=== PATIENT | male | born 1985 | race American Indian/Alaskan Native ===

== ENCOUNTER 2021-12-11 11:35 | Emergency (ER) | payer SELFPAY ==
[2021-12-11] MEDS ORDERED: HYDROcodone/ACETAMINOPHEN 5-325 MG TAB PO ONE (13:27)
--- NOTE | 2021-12-11 13:31 | Event Note ---
ED Screening Note ED Screening Note: Patient presents with complaints of body aches, chills, shortness of breath, and swelling to his left testicle starting Thursday History of HIV, diabetes, hypertension, and HLD Patient is not on antiretrovirals He denies being vaccinated against COVID-19 and has not had any recent testing performed No hemoptysis or recent long travel per patient No leg pain/swelling This initial assessment/diagnostic orders/clinical plan/treatment(s) is/are subject to change based on patients health status, clinical progression and re- assessment by fellow clinical providers in the ED. Further treatment and workup at subsequent clinical providers discretion. Patient/guardian urged not to elope from the ED as their condition may be serious if not clinically assessed and managed. Initial orders include: Labs Meds Ultrasound
[2021-12-11 14:07] LABS: Basophils % (Auto) 0.5 % (0.0-1.8); Eosinophils % (Auto) 0.5 % (0.0-4.3); Hemoglobin 16.3 gm/dl (11.8-15.2); Lymphocytes # (Auto) 1.8 K/mm3 (1.2-5.4); Lymphocytes % (Auto) 35.2 % (13.4-35.0); Mean Corpuscular HGB Conc 33 % (32-34); Mean Corpuscular Volume 90 fl (84-94); Monocytes # (Auto) 0.7 K/mm3 (0.0-0.8); Monocytes % (Auto) 14.4 % (0.0-7.3); Platelet Count 163 K/mm3 (140-440); Red Blood Count 5.54 M/mm3 (3.65-5.03); Red Cell Distribution Width 14.8 % (13.2-15.2)
[2021-12-11 14:27] LABS: Bilirubin,Urine MOD (Negative); Blood,Urine SM (Negative); Color,Urine Amber (Yellow); Mucus,Urine 2+ /HPF; Sperm,Urine 1+ /HPF (NP)
[2021-12-11 14:38] LABS: Albumin 3.9 g/dL (3.9-5); BUN/Creatinine Ratio 10; Blood Urea Nitrogen 10 mg/dL (9-20); Hemolysis Index 6
[2021-12-11 14:46] LABS: Ictotest,Urine Positive (Negative)
--- NOTE | 2021-12-11 14:48 | Ultrasound Report ---
. ULTRASOUND SCROTUM INDICATION: pain, swelling. COMPARISON None available. FINDINGS -- RIGHT TESTIS: Size: 4.2 cm. Echotexture: Normal. Color Doppler Flow: Normal. Lesions: None. EPIDIDYMIS: Size: Normal. Echotexture: Normal. Color Doppler Flow: Normal. Lesions: None. Hydrocele: None. Varicocele: None. Additional Findings: None. FINDINGS -- LEFT TESTIS: Size: 4.0 cm. Echotexture: Normal. Color Doppler Flow: Normal. Lesions: None. EPIDIDYMIS: Size: Normal. Echotexture: Normal. Color Doppler Flow: Normal. Lesions: None. Hydrocele: None. Varicocele: None. Additional Findings: Within the left hemiscrotum there is an extratesticular complex area with periph eral vascularity. This measures approximately 3.3 x 1.3 x 1.7 cm. The superficial aspect of this trac ks toward the skin surface. IMPRESSION: 1. No testicular abnormality. No hydrocele. 2. The left hemiscrotum there is a complex hypoechoic area with peripheral vascularity that tracks to thomason the skin surface, measurements as above. This could be organizing infection. No drainable absces s is seen at this time. Signer Name: Orlin Garnett MD Signed: 12/11/2021 2:43 PM Workstation Name: [id number]
--- NOTE | 2021-12-11 14:58 | XRay Report ---
CHEST 2 VIEWS INDICATION / CLINICAL INFORMATION: shortness of breath. COMPARISON: None available. FINDINGS: SUPPORT DEVICES: None. HEART / MEDIASTINUM: No significant abnormality. LUNGS / PLEURA: No significant pulmonary or pleural abnormality. No pneumothorax. ADDITIONAL FINDINGS: No significant additional findings. IMPRESSION: 1. No acute findings. Signer Name: Shai Duque DO Signed: 12/11/2021 2:54 PM Workstation Name: [id number]
[2021-12-11] MEDS ORDERED: fentaNYL 100 MCG/2 ML INJ IV ONE (15:11)
[2021-12-11] MEDS ORDERED: SODIUM CHLORIDE 0.9% 1000 ML 1,000 ML IV ONE (15:11)
--- NOTE | 2021-12-11 15:13 | Emergency Department Report ---
ED General Adult HPI - General Chief complaint: Dyspnea/Respdistress Stated complaint: ABCESS/BODY PAIN/SOB Time Seen by Provider: 12/11/21 13:06 Source: patient Mode of arrival: Ambulatory Limitations: No Limitations - History of Present Illness Initial comments: Patient presented secondary to myalgias with body aches and scrotal pain. He has been having symptoms for several days now. He reports subjective fevers and chills. There is diffuse myalgia. He has had no vomiting or diarrhea. Has no dysuria frequency. He has been having pain in the left side of the scrotum. There is no scrotal trauma. Pain has been in constant aching pain. It does not radiate or migrate. He has had no dysuria. There has been no cough. He has no vomiting or diarrhea. He has not been taking a lot of Tylenol. He does not drink a lot of alcohol. He does admit that he has HIV but is not on any medications currently. Severity scale (0 -10): 3 - Related Data Previous Rx's Medication Instructions Recorded Last Taken Type Ibuprofen [Motrin] 800 mg PO Q8HR PRN #30 tablet 12/11/21 Unknown Rx Sulfamethoxazole/Trimethoprim 1 each PO BID #20 tab 12/11/21 Unknown Rx [Bactrim 400-80 mg Tablet] cephALEXin [Keflex] 500 mg PO Q8HR #30 cap 12/11/21 Unknown Rx Allergies Allergy/AdvReac Type Severity Reaction Status Date / Time nalbuphine [From Nubain] AdvReac Unknown Verified 12/11/21 12:15 ED Review of Systems ROS: Stated complaint: ABCESS/BODY PAIN/SOB Other details as noted in HPI Comment: All other systems reviewed and negative Constitutional: fever (Subjective) Eyes: denies: eye pain ENT: denies: throat pain Respiratory: denies: cough Cardiovascular: denies: chest pain Endocrine: denies: unexplained weight loss Gastrointestinal: denies: abdominal pain Genitourinary: as per HPI Musculoskeletal: denies: back pain Skin: denies: rash Neurological: denies: headache Hematological/Lymphatic: denies: easy bruising ED Past Medical Hx - Past Medical History Hx HIV: Yes - Family History Family history: no significant - Medications Home Medications: Home Medications Medication Instructions Recorded Confirmed Last Taken Type Ibuprofen [Motrin] 800 mg PO Q8HR PRN #30 tablet 12/11/21 Unknown Rx Sulfamethoxazole/Trimethoprim 1 each PO BID #20 tab 12/11/21 Unknown Rx [Bactrim 400-80 mg Tablet] cephALEXin [Keflex] 500 mg PO Q8HR #30 cap 12/11/21 Unknown Rx ED Physical Exam - General Limitations: No Limitations, Other (Pulse ox noted and normal) General appearance: alert, in no apparent distress - Head Head exam: Present: atraumatic, normocephalic - Eye Eye exam: Present: normal appearance, EOMI. Absent: scleral icterus - ENT ENT exam: Present: normal orophraynx, normal external ear exam - Neck Neck exam: Present: normal inspection. Absent: meningismus - Respiratory Respiratory exam: Present: normal lung sounds bilaterally. Absent: respiratory distress - Cardiovascular Cardiovascular Exam: Present: regular rate, normal rhythm - GI/Abdominal GI/Abdominal exam: Present: soft. Absent: distended, tenderness, guarding, rebound - exam: Present: scrotal swelling (Left), vertical testicular lie, other (There is no induration in the swollen area in the left scrotum. Testicle is not affected. Hysterics are normal). Absent: testicular tenderness - Extremities Exam Extremities exam: Present: normal capillary refill - Back Exam Back exam: Absent: CVA tenderness (R), CVA tenderness (L) - Neurological Exam Neurological exam: Present: alert, oriented X3, CN II-XII intact, normal gait, motor sensory deficit - Psychiatric Psychiatric exam: Present: normal affect, normal mood - Skin Skin exam: Present: warm, dry ED Course Vital Signs 12/11/21 12/11/21 12:17 15:56 Temperature 98.2 F 98.8 F Pulse Rate 95 H 83 Respiratory 18 18 Rate Blood Pressure 115/79 105/67 [Right] O2 Sat by Pulse 97 100 Oximetry - Reevaluation(s) Reevaluation #1: 12/11/21 15:13 Labs are noted. Ultrasound and x-ray results were noted. Antibiotics were ordered along with blood cultures. Old records noted. Reevaluation #2: 12/11/21 16:55 Labs are noted and the patient was discharged. ED Medical Decision Making - Lab Data Result diagrams: 12/11/21 13:49 12/11/21 13:49 - Radiology Data Radiology results: report reviewed - Medical Decision Making Patient presented with multiple issues including scrotal pain. He did not have clinical evidence of torsion or ultrasonographic evidence of torsion. He does have evidence of a possible phlegmon versus cellulitis. There is no evidence of discrete or drainable abscess. Patient does not have significant leukocytosis or lactic acidosis. I do not believe he has sepsis. He does have elevated liver enzymes of uncertain etiology. He has not been at this facility before. He has not been using Tylenol. He has no right upper quadrant tenderness. Whether this is related to HIV is not known. Patient will be referred to gastroenterology and to primary care. We have had a long discussion about evaluation of his liver enzymes. We have also discussed the fact that he has a scrotal cellulitis and this needs to be watched carefully. He will follow-up with his primary care physician. He does not have other features of severe sepsis or septic shock. Critical Care Time: No Critical care attestation.: If time is entered above; I have spent that time in minutes in the direct care of this critically ill patient, excluding procedure time. ED Disposition Clinical Impression: Cellulitis of scrotum, Transaminitis Disposition: HOME / SELF CARE / HOMELESS Is pt being admited?: No Condition: Stable Additional Instructions: Take the antibiotics. Avoid Tylenol. 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 Avoid alcohol in addition. Have your liver enzymes rechecked. Return for any problems or concerns. Prescriptions: Sulfamethoxazole/Trimethoprim [Bactrim 400-80 mg Tablet] 1 each PO BID #20 tab cephALEXin [Keflex] 500 mg PO Q8HR #30 cap Ibuprofen [Motrin] 800 mg PO Q8HR PRN #30 tablet PRN Reason: Pain, Moderate (4-6) Referrals: PRIMARY MD ANGELA [Referring] - 3-5 Days AMANDA HAIRSTON MD [Staff Physician] - 3-5 Days DARA NGUYEN MD [Staff Physician] - 3-5 Days
[2021-12-11 15:20] LABS: Alanine Aminotransferase 4147 units/L (7-56)
[2021-12-11 15:57] VITALS: BP 105/67
== END 2021-12-11 18:07 | disposition home or self-care (01) ==
LOC: ED 11:35
DX: N49.2 Inflammatory disorders of scrotum (principal); R74.01 Elevation of levels of liver transaminase levels; M79.18 Myalgia, other site; Z88.8 Allergy status to other drugs, medicaments and biological substances; Z79.899 Other long term (current) drug therapy
CPT/HCPCS: 36415; 71046; 80053; 81001; 82140; 85025; 87040; 93975; 96361; 96365; 96375; 99284; J0690; J3010; J7030; Q0162

== ENCOUNTER 2021-12-13 17:55 | Emergency (ER) | payer SELFPAY ==
[2021-12-13] MEDS ORDERED: MEROPENEM/NS 1 GRAM/100 ML 1 GRAM/100 ML BAG IV ONE (19:04)
[2021-12-13] MEDS ORDERED: MORPHINE 4 MG/1 ML INJ IV ONE ×2 (19:05→23:23)
[2021-12-13] MEDS ORDERED: VANCOMYCIN/NS 1 GM/250 ML 1 GM/250 ML BAG IV ONE (19:05)
[2021-12-13] MEDS ORDERED: ONDANSETRON 4 MG/2 ML INJ IV ONE (19:05)
--- NOTE | 2021-12-13 19:11 | Event Note ---
I performed medical screening exam. This is a 36-year-old male with history of diabetes mellitus, HIV noncompliant with ART who presents with cellulitis of the scrotum. Infection has been present for 1 week. He was evaluated at this facility 2 days ago. Given antibiotics. Infection has worsened. There is a 5 cm area in the left central scrotum with fluctuance. 3 cm dark necrotic area. I have ordered broad-spectrum antibiotics and CT pelvis with IV contrast. My colleague will make appropriate disposition.
--- NOTE | 2021-12-13 19:53 | Emergency Department Report ---
ED Male HPI - General Chief complaint: Urogenital-Male Stated complaint: CELLUTIUS Time Seen by Provider: 12/13/21 18:32 Source: patient Mode of arrival: Ambulatory Limitations: No Limitations - History of Present Illness Initial comments: 36-year-old male with a past medical history of tab-[id number] diabetes, HIV for the last 4-5 years of heart medicine for 7 months due to lack of local MD (CD4 unknown), history of heart surgery for removal of a cardiac mass in 2019 presents to the hospital with complaints of worsening left testicular infection. 1 week ago patient developed a "bump" to his left scrotum which he popped on his own. 2 days later the left testicle was increasing in size with worsening pain. He presented here on December 11 and had a testicular ultrasound suggestive of cellulitis/infection and was started on Bactrim and Keflex. Despite taking the medication patient complains of worsening pain and swelling and noticed black discoloration to the skin today. He complains of generalized tiredness and fatigue with moderate to severe pain worse with palpation and ambulation. Patient states he drinks alcohol weekends only and denies alcohol dependence - Related Data Previous Rx's Medication Instructions Recorded Last Taken Type Ibuprofen [Motrin] 800 mg PO Q8HR PRN #30 tablet 12/11/21 Unknown Rx Sulfamethoxazole/Trimethoprim 1 each PO BID #20 tab 12/11/21 Unknown Rx [Bactrim 400-80 mg Tablet] cephALEXin [Keflex] 500 mg PO Q8HR #30 cap 12/11/21 Unknown Rx Allergies Allergy/AdvReac Type Severity Reaction Status Date / Time nalbuphine [From Nubain] AdvReac Unknown Verified 12/11/21 12:15 ED Review of Systems ROS: Stated complaint: CELLUTIUS Other details as noted in HPI Comment: All other systems reviewed and negative ED Past Medical Hx - Past Medical History Previous Medical History?: Yes Hx HIV: Yes - Surgical History Past Surgical History?: Yes Additional Surgical History: Cardiac mass removal 2009 - Medications Home Medications: Home Medications Medication Instructions Recorded Confirmed Last Taken Type Ibuprofen [Motrin] 800 mg PO Q8HR PRN #30 tablet 12/11/21 Unknown Rx Sulfamethoxazole/Trimethoprim 1 each PO BID #20 tab 12/11/21 Unknown Rx [Bactrim 400-80 mg Tablet] cephALEXin [Keflex] 500 mg PO Q8HR #30 cap 12/11/21 Unknown Rx ED Physical Exam - General Limitations: No Limitations - Other Other exam information: General: No acute distress Head: Atraumatic Eyes: Icteric sclera ENT: Moist mucous membranes Neck: Normal appearance, no midline tenderness Chest: Clear to auscultation bilaterally CV: Regular rate and rhythm. Heart rate 93 during examination Abdomen: Soft, normal bowel sounds, nontender, nondistended, no rebound or guarding : Circumcised, penis without acute adenopathy, patient has swelling to the left scrotum with tenderness and 2 separate areas of necrosis. Pain is a 5 cm and a 2 cm area of necrosis to the left testicle. Patient does not have tenderness or crepitus along the upper leg, thigh, or inguinal area. Nontender left inguinal lymphadenopathy, no drainage Back: Normal inspection Extremity: Normal inspection, full range of motion Neuro: Alert O x 3, no facial asymmetry, speech clear, no gross motor sensory deficit Psych: Appropriate behavior Skin: No rash ED Course Vital Signs 12/13/21 12/13/21 12/13/21 18:16 19:37 19:40 Temperature 98.5 F 98.7 F Pulse Rate 118 H 92 H 91 H Respiratory 16 11 L 17 Rate Blood Pressure 117/78 Blood Pressure 129/79 114/76 [Left] O2 Sat by Pulse 97 96 97 Oximetry 12/13/21 12/13/21 12/13/21 19:45 20:01 20:08 Temperature Pulse Rate 89 91 H Respiratory 16 19 18 Rate Blood Pressure 123/85 119/89 Blood Pressure [Left] O2 Sat by Pulse 97 96 Oximetry 12/13/21 12/13/21 12/13/21 20:15 20:31 23:34 Temperature Pulse Rate 93 H 100 H Respiratory 13 22 18 Rate Blood Pressure 119/89 119/89 Blood Pressure [Left] O2 Sat by Pulse 98 98 Oximetry - Reevaluation(s) Reevaluation #1: 12/13/21 23:23 During ultrasound patient had rupture of his scrotal abscess with significant purulent drainage. Additional pain medicine ordered 12/13/21 23:41 Patient reexamined and has irregular abscess that area large necrotic area with foul-smelling purulent drainage. - Consultations Consultation #1: 12/13/21 22:05 secondary attempted to call [facility] to transfer patient and discussed case. We were informed that we will be contacting since they were busy with another call. 22:44 Case discussed with [facility] service. Leona will page urology and call me back 12/13/21 22:52 Received call back (originally called at 22:45)katherine Valladares and I spoke to Dr. Caal urologist who has accepted patient for transfer pending awaiting callback from admitting hospitalist to finalize acceptance. 12/13/21 23:51 Received follow-up call for [facility] at this time to receive patient information. Since patient has a pending acceptance to [facility] I did not pursue transfer to [facility] at this time 12/14/21 00:05 I received call from [facility] that pt does not have a bed therefore transfer decline ED Medical Decision Making - Lab Data Result diagrams: 12/13/21 19:27 12/13/21 19:27 Lab Results 12/13/21 12/13/21 12/13/21 Range/Units 19:27 19:27 19:27 WBC 8.2 (4.5-11.0) K/mm3 RBC 5.02 (3.65-5.03) M/mm3 Hgb 16.0 H (11.8-15.2) gm/dl Hct 45.7 H (35.5-45.6) % MCV 91 (84-94) fl MCH 32 (28-32) pg MCHC 35 H (32-34) % RDW 15.1 (13.2-15.2) % Plt Count 162 (140-440) K/mm3 Lymph % (Auto) 16.0 (13.4-35.0) % Lawrence % (Auto) 4.3 (0.0-7.3) % Eos % (Auto) 0.6 (0.0-4.3) % Baso % (Auto) 0.4 (0.0-1.8) % Lymph # (Auto) 1.3 (1.2-5.4) K/mm3 Lawrence # (Auto) 0.4 (0.0-0.8) K/mm3 Eos # (Auto) 0.0 (0.0-0.4) K/mm3 Baso # (Auto) 0.0 (0.0-0.1) K/mm3 Seg Neutrophils % 78.7 H (40.0-70.0) % Seg Neutrophils # 6.5 (1.8-7.7) K/mm3 PT (12.2-14.9) Sec. INR (0.87-1.13) APTT (24.2-36.6) Sec. Sodium 133 L (137-145) mmol/L Potassium 4.2 (3.6-5.0) mmol/L Chloride 98.0 (98-107) mmol/L Carbon Dioxide 24 (22-30) mmol/L Anion Gap 15 mmol/L BUN 10 (9-20) mg/dL Creatinine 0.7 L (0.8-1.3) mg/dL Estimated GFR > 60 ml/min BUN/Creatinine Ratio 14 % Glucose 166 H (75-100) mg/dL Lactic Acid 4.10 H* (0.7-2.0) mmol/L Calcium 9.1 (8.4-10.2) mg/dL Total Bilirubin 6.90 H (0.1-1.2) mg/dL AST 1698 H (5-40) units/L ALT 3184 H (7-56) units/L Alkaline Phosphatase 268 H (35-129) units/L Total Protein 8.6 H (6.3-8.2) g/dL Albumin 3.5 L (3.9-5) g/dL Albumin/Globulin Ratio 0.7 % Hepatitis A IgM Ab (NonReactive) Hep Bs Antigen (Negative) Hep B Core IgM Ab (NonReactive) Hepatitis C Antibody (NonReactive) 12/13/21 12/13/21 12/13/21 Range/Units 20:22 20:45 23:18 WBC (4.5-11.0) K/mm3 RBC (3.65-5.03) M/mm3 Hgb (11.8-15.2) gm/dl Hct (35.5-45.6) % MCV (84-94) fl MCH (28-32) pg MCHC (32-34) % RDW (13.2-15.2) % Plt Count (140-440) K/mm3 Lymph % (Auto) (13.4-35.0) % Lawrence % (Auto) (0.0-7.3) % Eos % (Auto) (0.0-4.3) % Baso % (Auto) (0.0-1.8) % Lymph # (Auto) (1.2-5.4) K/mm3 Lawrence # (Auto) (0.0-0.8) K/mm3 Eos # (Auto) (0.0-0.4) K/mm3 Baso # (Auto) (0.0-0.1) K/mm3 Seg Neutrophils % (40.0-70.0) % Seg Neutrophils # (1.8-7.7) K/mm3 PT 18.9 H (12.2-14.9) Sec. INR 1.43 H (0.87-1.13) APTT 32.1 (24.2-36.6) Sec. Sodium (137-145) mmol/L Potassium (3.6-5.0) mmol/L Chloride (98-107) mmol/L Carbon Dioxide (22-30) mmol/L Anion Gap mmol/L BUN (9-20) mg/dL Creatinine (0.8-1.3) mg/dL Estimated GFR ml/min BUN/Creatinine Ratio % Glucose (75-100) mg/dL Lactic Acid 1.90 (0.7-2.0) mmol/L Calcium (8.4-10.2) mg/dL Total Bilirubin (0.1-1.2) mg/dL AST (5-40) units/L ALT (7-56) units/L Alkaline Phosphatase (35-129) units/L Total Protein (6.3-8.2) g/dL Albumin (3.9-5) g/dL Albumin/Globulin Ratio % Hepatitis A IgM Ab Reactive A (NonReactive) Hep Bs Antigen Non-reactive (Negative) Hep B Core IgM Ab Non-reactive (NonReactive) Hepatitis C Antibody Non-reactive (NonReactive) - Radiology Data Radiology results: report reviewed Age/Sex: 36 / M ADM Date: 12/11/21 Loc: ED Attending Dr: Ordering Physician: NICHOLE ARITA Date of Service: 12/11/21 Procedure(s): US testicular doppler comp Accession Number(s): [id number] cc: NICHOLE ARITA . ULTRASOUND SCROTUM INDICATION: pain, swelling. COMPARISON None available. FINDINGS -- RIGHT TESTIS: Size: 4.2 cm. Echotexture: Normal. Color Doppler Flow: Normal. Lesions: None. EPIDIDYMIS: Size: Normal. Echotexture: Normal. Color Doppler Flow: Normal. Lesions: None. Hydrocele: None. Varicocele: None. Additional Findings: None. FINDINGS -- LEFT TESTIS: Size: 4.0 cm. Echotexture: Normal. Color Doppler Flow: Normal. Lesions: None. EPIDIDYMIS: Size: Normal. Echotexture: Normal. Color Doppler Flow: Normal. Lesions: None. Hydrocele: None. Varicocele: None. Additional Findings: Within the left hemiscrotum there is an extratesticular complex area with peripheral vascularity. This measures approximately 3.3 x 1.3 x 1.7 cm. The superficial aspect of this tracks toward the skin surface. IMPRESSION: 1. No testicular abnormality. No hydrocele. 2. The left hemiscrotum there is a complex hypoechoic area with peripheral vas cularity that tracks toward the skin surface, measurements as above. This could be organizing infec tion. No drainable abscess is seen at this time. Signer Name: Orlin Garnett MD Signed: 12/11/2021 2:43 PM Workstation Name: [email or web address] 12/13 results: CT ABDOMEN AND PELVIS WITH CONTRAST INDICATION / CLINICAL INFORMATION: left scrotal necrosis, lft elevation. TECHNIQUE: Axial CT images were obtained through the abdomen and pelvis after Omnipaque 350, 100 cc IV contrast. [address] scans at this location are performed using CT dose redu ction for [facility] by means of automated exposure control. COMPARISON: None available. FINDINGS: LOWER CHEST: No significant abnormality. LIVER: No significant abnormality. GALLBLADDER: Partially contracted gallbladder with mild wall edema. BILE DUCTS: No significant abnormality. PANCREAS: No significant abnormality. SPLEEN: No significant abnormality. ADRENALS: No significant abnormality. RIGHT KIDNEY / URETER: No significant abnormality. LEFT KIDNEY / URETER: No significant abnormality. STOMACH / SMALL BOWEL: No significant abnormality. COLON: No significant abnormality. APPENDIX: No significant abnormality. PERITONEUM: Mild fluid/inflammation at the subhepatic space and right paracolic gutter. No free air. No fluid collection. LYMPH NODES: No significant adenopathy. VASCULAR STRUCTURES: No significant abnormality. URINARY BLADDER: No significant abnormality. REPRODUCTIVE ORGANS: Large amount of fluid at the left hemiscrotum with nondependent air. ADDITIONAL FINDINGS: None. SKELETAL SYSTEM: No significant abnormality. IMPRESSION: 1. Suspected infected left hydrocele. 2. Contracted gallbladder with mild wall edema. There is also mild inflammation at the subhepatic space extending towards the right paracolic gutter. Findings are worrisome for cholecystitis in the appropriate clinical setting. Further evaluation could be obtained with ultrasound or HIDA scan as clinically indicated. Signer Name: Ger Galarza MD Signed: 12/13/2021 9:18 PM Workstation Name: [id number] - Medical Decision Making 36-year-old male presents to the hospital with worsening left scrotal infection with new skin necrosis. 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 Positive abscess rupture while receiving repeat ultrasound. CT results noted and discussed with radiologist. Patient has elevated lactic acid without signs of septic shock. Improved lactic acidosis with IV hydration. Patient also received several antibiotics for Gustavo's coverage. Patient is immunocompromised secondary to HIV with medication noncompliance and diabetes. Incidental finding of elevated LFTs noted and compared to previous values 2 days ago. Hepatitis a screen positive. Low suspicion for acute cholecystitis given lack of right upper quadrant abdominal pain, nausea, or vomiting. Patient accepted by urologist at [facility] with return calls pending from [place] at disposition Case signed out to Dr. Fiore did discuss case with accepting hospitalist at [facility] who will admit with urology consultation (declined due to bed capacity) Critical Care Time: Yes Critical care time in (mins) excluding proc time.: 35 Critical care attestation.: If time is entered above; I have spent that time in minutes in the direct care of this critically ill patient, excluding procedure time. Critical Care Time: 35 Minutes of critical care time excluding procedures were used in the care of the patient. I discussed treatment plan with the nursing team members. I rev iewed electronic record. I spoke with family to obtain medical history. Patient required multiple interventions and reassessments. Patient required multiple outside calls for transfer ED Disposition Clinical Impression: Scrotal abscess, HIV (human immunodeficiency virus infection), Hepatitis A, Transaminitis, Skin necrosis, Elevated lactic acid level Disposition: 02 SHORT TERM HOSPITAL Is pt being admited?: No Condition: Stable Referrals: IWONA HORNER MD [Primary Care Provider] - 3-5 Days Time of Disposition: 23:53 (pending acceptance)
[2021-12-13 19:58] LABS: Albumin 3.5 g/dL (3.9-5); Blood Urea Nitrogen 10 mg/dL (9-20); Calcium 9.1 mg/dL (8.4-10.2); Hemolysis Index 100
[2021-12-13 20:00] LABS: Basophils % (Auto) 0.4 % (0.0-1.8); Eosinophils % (Auto) 0.6 % (0.0-4.3); Hematocrit 45.7 % (35.5-45.6); Lymphocytes # (Auto) 1.3 K/mm3 (1.2-5.4); Mean Corpuscular HGB Conc 35 % (32-34); Mean Corpuscular Volume 91 fl (84-94); Monocytes # (Auto) 0.4 K/mm3 (0.0-0.8); Monocytes % (Auto) 4.3 % (0.0-7.3); Platelet Count 162 K/mm3 (140-440); Red Blood Count 5.02 M/mm3 (3.65-5.03); Red Cell Distribution Width 15.1 % (13.2-15.2)
[2021-12-13 20:11] LABS: Alanine Aminotransferase 3184 units/L (7-56); BUN/Creatinine Ratio 14
[2021-12-13] MEDS ORDERED: SODIUM CHLORIDE 0.9% 1000 ML IV SOLN IV ONE (20:14)
[2021-12-13 21:19] LABS: INR 1.43 (0.87-1.13); Partial Thromboplastin Time 32.1 Sec. (24.2-36.6)
--- NOTE | 2021-12-13 21:23 | Cat Scan Report ---
CT ABDOMEN AND PELVIS WITH CONTRAST INDICATION / CLINICAL INFORMATION: left scrotal necrosis, lft elevation. TECHNIQUE: Axial CT images were obtained through the abdomen and pelvis after Omnipaque 350, 100 cc I V contrast. All CT scans at this location are performed using CT dose reduction for ALARA by means o f automated exposure control. COMPARISON: None available. FINDINGS: LOWER CHEST: No significant abnormality. LIVER: No significant abnormality. GALLBLADDER: Partially contracted gallbladder with mild wall edema. BILE DUCTS: No significant abnormality. PANCREAS: No significant abnormality. SPLEEN: No significant abnormality. ADRENALS: No significant abnormality. RIGHT KIDNEY / URETER: No significant abnormality. LEFT KIDNEY / URETER: No significant abnormality. STOMACH / SMALL BOWEL: No significant abnormality. COLON: No significant abnormality. APPENDIX: No significant abnormality. PERITONEUM: Mild fluid/inflammation at the subhepatic space and right paracolic gutter. No free air. No fluid collection. LYMPH NODES: No significant adenopathy. VASCULAR STRUCTURES: No significant abnormality. URINARY BLADDER: No significant abnormality. REPRODUCTIVE ORGANS: Large amount of fluid at the left hemiscrotum with nondependent air. ADDITIONAL FINDINGS: None. SKELETAL SYSTEM: No significant abnormality. IMPRESSION: 1. Suspected infected left hydrocele. 2. Contracted gallbladder with mild wall edema. There is also mild inflammation at the subhepatic spa ce extending towards the right paracolic gutter. Findings are worrisome for cholecystitis in the [facility] clinical setting. Further evaluation could be obtained with ultrasound or HIDA scan as clinic ally indicated. Signer Name: Ger Galarza MD Signed: 12/13/2021 9:18 PM Workstation Name: [id number]
[2021-12-13 21:34] LABS: Hepatitis B Surface Antigen Non-Reactive (Negative); Hepatitis C Virus Antibody Non-Reactive (NonReactive)
--- NOTE | 2021-12-13 23:34 | Ultrasound Report ---
LIMITED RUQ ABDOMINAL ULTRASOUND INDICATION / CLINICAL INFORMATION: elevated lfts. COMPARISON: CT from same day FINDINGS: PANCREAS: Visualized portions of the pancreas are within normal limits. ABDOMINAL AORTA: No significant abnormality. IVC: No significant abnormality. LIVER: Liver measures 17.5 cm. The liver demonstrates a normal echogenicity and morphology. PORTAL VEIN: Normal hepatopedal blood flow in the main portal vein. GALLBLADDER: Gallbladder is contracted. No discrete gallstones identified. However, there is perichol ecystic fluid. The wall of the gallbladder measures 5 mm. BILE DUCTS: No significant abnormality. Common bile duct measures 3 mm. FREE FLUID: None. ADDITIONAL FINDINGS: None. IMPRESSION: 1. Contracted gallbladder without discrete gallstones. However, there is pericholecystic fluid and ga llbladder wall thickening. Findings could be seen with acute acalculous cholecystitis. Recommend furt her evaluation with HIDA scan. 2. Mild hepatomegaly. Signer Name: Keith Grewal MD Signed: 12/13/2021 11:30 PM Workstation Name: [id number]
--- NOTE | 2021-12-13 23:40 | Ultrasound Report ---
ULTRASOUND SCROTUM INDICATION / CLINICAL INFORMATION: left scrotum infection. COMPARISON: Same-day CT examination. Prior ultrasound from 12/11/2021 FINDINGS -- RIGHT TESTIS: Size = 3.9 x 2.3 x 2.3 cm. - Appearance: No significant abnormality. - Cyst or Mass: None. - Color Doppler Flow: No significant abnormality. EPIDIDYMIS: No significant abnormality. HYDROCELE: None. VARICOCELE: None demonstrated. FINDINGS -- LEFT Normal left testicle is not seen. In the left hemiscrotum, there is a 5.1 x 2.9 x 4.1 cm complex hypo echoic structure with extensive vascularity with adjacent subcutaneous edema and inflammation. Previo usly, the left testicle appeared normal with an adjacent 3.3 x 1.3 x 1.7 cm complex hypoechoic area a djacent to the testicle. ADDITIONAL FINDINGS: None. IMPRESSION: Abnormal appearance of the left testicle. Normal left testicle is no longer seen. In the left hemiscr otum, there is a 5.1 cm complex hypoechoic structure with extensive vascularity and adjacent subcutan eous edema and inflammation. Findings could represent developing left orchitis or enlargement of prev iously described organizing infection and displacement of the left testicle. Surgical consultation is recommended. Signer Name: Keith Grewal MD Signed: 12/13/2021 11:36 PM Workstation Name: [id number]
--- NOTE | 2021-12-14 01:06 | Event Note ---
Date: 12/14/[address] English urologist over [facility] discussed with him the case, accepted patient , sp[alba with dr Barry hospitalist and he accepted patient transfer
[2021-12-14] MEDS ORDERED: D5W/0.2% NACL 1,000 ML IV SCH (02:00)
[2021-12-14] MEDS: D5W/0.45% NACL 1,000 ML IV SCH ×2 (03:10→12:05)
[2021-12-14] MEDS ORDERED: SODIUM CHLORIDE 0.9% 1000 ML 0 ML ONE (05:30)
[2021-12-14] MEDS ORDERED: MORPHINE 4 MG/1 ML INJ ONE (11:06)
[2021-12-14] MEDS ORDERED: MORPHINE 4 MG/1 ML INJ IV ONE (11:12)
[2021-12-14 12:22] VITALS: BP 120/80
== END 2021-12-14 13:32 | disposition short-term general hospital (02) ==
LOC: ED 17:55
DX: N45.4 Abscess of epididymis or testis (principal); B20 Human immunodeficiency virus [HIV] disease; B15.9 Hepatitis A without hepatic coma; R74.01 Elevation of levels of liver transaminase levels; I96 Gangrene, not elsewhere classified; R74.02 Elevation of levels of lactic acid dehydrogenase [LDH]
CPT/HCPCS: 36415; 74177; 76705; 80053; 80074; 82140; 82962; 85025; 85610; 85730; 87040; 93975; 96365; 96366; 96367; 96375; 96376; 99291; J2185; J2270; J2405; J3370; J7030; J7042; J7070; J7502; Q9967; 76870; Q0162